=== PATIENT | female | born 1995 | race African-American/Black ===

== ENCOUNTER 2016-11-07 12:13 | Inpatient (IN) | payer MEDICAID, OTHER ==
[~2016-11-07] VITALS: Ht 165.1 cm; Wt 59.0 kg
[2016-11-07] MEDS ORDERED: IV NORMAL SALINE 1000 ML BAG IV ONE (12:45)
--- NOTE | 2016-11-07 12:55 | NUR ---
dr robles at the bedside for eval and exam.
[2016-11-07] MEDS ORDERED: LEVETIRACETAM IV 500 MG in IV DEXTROSE 5% 100 ML IV ONE (13:00)
[2016-11-07 13:05] LABS: BASOPHILS % (AUTO) 0.5 % (0.0-2.0); EOSINOPHILS % (AUTO) 0.9 % (0.0-7.0); HEMATOCRIT 37.3 % (37-47); HEMOGLOBIN 11.8 G/DL (12.0-16.0); LYMPHOCYTES # (AUTO) 2.1 K/UL (0.8-4.8); LYMPHOCYTES % (AUTO) 39.2 % (20.5-51.5); MEAN CORPUSCULAR HGB CONC 32 g/dL (32.0-37.0); MEAN CORPUSCULAR VOLUME 91.6 FL (81.0-99.0); MONOCYTES # (AUTO) 0.5 K/UL (0.1-1.30); MONOCYTES % (AUTO) 9.5 % (0.0-11.0); NEUTROPHILS # (AUTO) 2.6 K/UL (1.8-8.9); NEUTROPHILS % (AUTO) 49.9 % (38.5-71.5); PLATELET COUNT (AUTO) 160 K/UL (150-450); RED BLOOD CELL COUNT(AUTO) 4.08 MIL/UL (4.2-5.4); RED CELL DISTRIBUTION WIDTH 12.7 % (11.5-14.5); WHITE BLOOD COUNT (AUTO) 5.2 K/UL (4.0-11.2)
[2016-11-07] MEDS ORDERED: LEVETIRACETAM 500 MG/5 ML VIAL IV ONE (13:12)
[2016-11-07] MEDS ORDERED: ONDANSETRON 4 MG/2 ML VIAL IV ONE (13:15)
[2016-11-07] MEDS ORDERED: ONDANSETRON 4 MG/2 ML VIAL ONE (13:19)
[2016-11-07 13:25] LABS: ALBUMIN 3.3 g/dL (3.4-5.0); BILIRUBIN,DIRECT 0.1 mg/dL (0.0-0.2); BILIRUBIN,TOTAL 0.3 mg/dL (0.2-1.0); CALCIUM 8.4 mg/dL (8.5-10.1); CREATININE 0.8 mg/dL (0.6-1.3); POTASSIUM 3.8 mmol/L (3.5-5.1)
--- NOTE | 2016-11-07 14:15 | NUR ---
DR CELESTIN ATTEMPTED LP. PT TOLORATED WELL. REMAINES A/O X2.
[2016-11-07 14:28] LABS: *BILIRUBIN,URIN NEGATIVE (NEGATIVE); *BLOOD, URINE NEGATIVE (NEGATIVE); *CLARITY,URINE CLEAR (CLEAR); *COLOR,URINE YELLOW (YELLOW); *KETONES,URINE NEGATIVE (NEGATIVE); *PROTEIN,URINE NEGATIVE (NEGATIVE); *UROBILINOGEN,URINE 0.2 E.U./dl (NORMAL); LEUKOCYTE ESTERASE ,URINE NEGATIVE (NEGATIVE); NITRITE, URINE NEGATIVE (NEGATIVE); UGLUCOSE NEGATIVE (NEGATIVE)
[2016-11-07] MEDS ORDERED: CEFTRIAXONE 2 G in IV DEXTROSE 5% 100 ML IV ONE (14:30)
[2016-11-07 14:41] LABS: BACTERIA,URINE FEW /HPF (NONE SEEN); RBC,URINE 0-3 /HPF (0-3); SQUAMOUS EPITHELIAL CELL,UR MODERATE /HPF (NONE SEEN)
[2016-11-07] MEDS ORDERED: CEFTRIAXONE 1 G VIAL ONE (14:45)
[2016-11-07 14:57] LABS: *AMPHETAMINE, URINE NEGATIVE (NEGATIVE); *BARBITURATE, URINE NEGATIVE (NEGATIVE); *CANNABINOID, URINE NEGATIVE (NEGATIVE); *COCCAINE, URINE NEGATIVE (NEGATIVE); *OPIATE, URINE NEGATIVE (NEGATIVE); *PHENCYCLIDINE SCREEN,URINE NEGATIVE (NEGATIVE)
--- NOTE | 2016-11-07 15:09 | NUR ---
PT LEFT ER FOR XRAY AND WILL GO TO TELE FLOOR FROM THERE. ALL BELONGINGS SENT W/ PT'S BOY FRIEND.
[2016-11-07 16:45] VITALS: BP 126/78
[2016-11-07 17:30] LABS: CSF GLUCOSE 56 mg/dL (40-70); CSF PROTEIN 25 mg/dL (15-45)
[2016-11-07] MEDS ORDERED: Z GUARD REMEDY PASTE 57 GM TUBE TOP PRN (17:30)
[2016-11-07] MEDS ORDERED: CEFTRIAXONE 1 G in IV DEXTROSE 5% 50 ML IV SCH (17:30)
[2016-11-07] MEDS ORDERED: MAGNESIUM HYDROXIDE 30 ML LIQUID UDC PO PRN (17:30)
[2016-11-07] MEDS ORDERED: ONDANSETRON 4 MG/2 ML VIAL IV PRN (17:30)
[2016-11-07] MEDS ORDERED: ZOLPIDEM 5 MG TABLET PO PRN (17:30)
[2016-11-07] MEDS ORDERED: ACETAMINOPHEN 325 MG TABLET PO PRN (17:30)
[2016-11-07 17:37] LABS: CSF APPEARANCE CLEAR (CLEAR); CSF COLOR COLORLESS (COLORLESS); CSF TUBE NUMBER 4; CSF WHITE BLOOD CELL COUNT 1 /cumm (0-5)
--- NOTE | 2016-11-07 17:55 | NUR ---
CLINICAL PHARMACY NOTE: VANCOMYCIN DOSING Request for vancomycin dosing on 20 y/o female 5'5" 130lbs for possible meningitis Temp 98.5, BUN 11 Scr 0.8 WBC 5.2 also receiving ceftriaxone and acyclovir Start vancomycin 1gm ivbp q12h estimate trough 14. Will order trough level prior to 4th dose. Will continue to monitor
[2016-11-07] MEDS: VANCOMYCIN IV 1 G in PREMIXED 0 EACH IV SCH (18:04)
[2016-11-07 19:00] VITALS: BP 112/66
--- NOTE | 2016-11-07 19:30 | NUR ---
Received report from RANDY Melo
[2016-11-07] MEDS ORDERED: diphenhydrAMINE 50 MG/1 ML VIAL IV ONE (20:00)
--- NOTE | 2016-11-07 20:00 | NUR ---
Received patient awake, ambulating to the BR. Denies pain at this time. Complaint of slight itchiness on both arms. No redness noted. Continue to monitor. Awaiting MD order
[2016-11-07] MEDS ORDERED: FAMOTIDINE 20 MG TABLET PO ONE (20:15)
[2016-11-07] MEDS: LEVETIRACETAM IV 500 MG in IV DEXTROSE 5% 100 ML IV SCH (21:14)
--- NOTE | 2016-11-07 22:00 | NUR ---
Visiting hours is over, Security officers asked the patient visitor to leave and patient refused and threatened to go AMA. Explained to both of them that it a hospital policy and patient asking a copy of Hospital policy regarding visiting hours. Charge nurse aware and direct me to call Nursing stewarding supervisor to deal with it. Supervisors were busy in MHU at this time.
[2016-11-07] MEDS: ACYCLOVIR IV 500 MG in IV DEXTROSE 5% 100 ML IV SCH (22:03)
--- NOTE | 2016-11-07 22:30 | NUR ---
Visitor left accompanied by Security Officers. Patient starts crying so loud.
--- NOTE | 2016-11-07 23:05 | NUR ---
Requesting sleeping pills, Ambien given as ordered and needed. Will monitor effect.
[2016-11-08 00:03] VITALS: BP 103/63
[2016-11-08] MEDS: CEFTRIAXONE 2 G in IV DEXTROSE 5% 100 ML IV SCH ×2 (03:39→15:59)
[2016-11-08 04:00] VITALS: BP 99/62
[2016-11-08] MEDS: ACYCLOVIR IV 500 MG in IV DEXTROSE 5% 100 ML IV SCH ×3 (05:58→21:21)
[2016-11-08] MEDS: HYDROCODONE/APAP 5-325MG TABLET PO PRN ×3 (05:58→19:54)
--- NOTE | 2016-11-08 05:58 | NUR ---
Complaining of low back pain. Sagle given as needed and ordered. Will monitor. Patient apologized for her behavior last night.
--- NOTE | 2016-11-08 06:11 | NUR ---
Sleeping during rounds
--- NOTE | 2016-11-08 06:12 | NUR ---
VSS. Medicated once for pain with relief. No further complaint presented. All needs attended and met. No s/s of adverse reaction noted from antibiotics. Vanco reaction is questionable if that's the cause of her itchiness. MD aware with orders. No rashes noted. No further complaint of itchiness after Benadryl was given. Will continue to monitor. No significant event reported. Continue current plan of care.
[2016-11-08] MEDS: VANCOMYCIN IV 1 G in PREMIXED 0 EACH IV SCH ×2 (07:05→17:00)
[2016-11-08 07:14] LABS: BASOPHILS % (AUTO) 0.3 % (0.0-2.0); EOSINOPHILS # (AUTO) 0.1 K/uL (0.0-0.7); EOSINOPHILS % (AUTO) 1.2 % (0.0-7.0); HEMATOCRIT 35.2 % (37-47); HEMOGLOBIN 11.8 G/DL (12.0-16.0); LYMPHOCYTES # (AUTO) 2.3 K/UL (0.8-4.8); LYMPHOCYTES % (AUTO) 41.5 % (20.5-51.5); MEAN CORPUSCULAR HEMOGLOBIN 30.3 UUG (27.0-31.0); MEAN CORPUSCULAR HGB CONC 33 g/dL (32.0-37.0); MEAN CORPUSCULAR VOLUME 90.9 FL (81.0-99.0); MONOCYTES # (AUTO) 0.4 K/UL (0.1-1.30); MONOCYTES % (AUTO) 6.3 % (0.0-11.0); NEUTROPHILS # (AUTO) 2.8 K/UL (1.8-8.9); NEUTROPHILS % (AUTO) 50.7 % (38.5-71.5); PLATELET COUNT (AUTO) 178 K/UL (150-450); RED BLOOD CELL COUNT(AUTO) 3.88 MIL/UL (4.2-5.4); RED CELL DISTRIBUTION WIDTH 12.6 % (11.5-14.5); WHITE BLOOD COUNT (AUTO) 5.6 K/UL (4.0-11.2)
[2016-11-08 07:15] LABS: CALCIUM 8.5 mg/dL (8.5-10.1); CREATININE 0.9 mg/dL (0.6-1.3); MAGNESIUM 1.7 mg/dL (1.8-2.4); PHOSPHOROUS 4.5 mg/dL (2.5-4.9); POTASSIUM 3.9 mmol/L (3.5-5.1)
--- NOTE | 2016-11-08 08:09 | NUR ---
PT AWAKE IN BED, IN NO ACUTE DISTRESS. IV INTACT AND PATENT ALL SAFETY AND COMFORT MEASURES ATTENDED TO, CALL LIGHT IN REACH, WILL CONTINUE TO MONITOR
[2016-11-08] MEDS: LEVETIRACETAM IV 500 MG in IV DEXTROSE 5% 100 ML IV SCH (09:33)
[2016-11-08] MEDS ORDERED: MAGNESIUM OXIDE 400 MG TABLET PO ONE (11:30)
[2016-11-08 12:05] VITALS: BP 101/67
--- NOTE | 2016-11-08 15:31 | NUR ---
Clinical Pharmacy Note: Vancomycin Dosing per Pharmacy Subjective: Vancomycin IV to continue on this 20 yo female patient for r/o meningitis. Objective: BUN 11/Scr 0.9 WBC 5.6 Temperature 98.5 Assessment/Plan: Will change vancomycin dose from 1000mg IVPB Q14hr to 1gm IVPB q11hrs for a predicted vancomycin steady state trough level of 15 mcg/ml (since 1gm q14 will have predicted vancomycin trough level of 14 mcg/ml- low for meningitis). Second dose is due today at 1700. Will draw a vancomycin trough level prior to the 4th dose of vancomycin (ordered for 11/09 at 1430). Will monitor renal function and adjust vancomycin dose, if needed, should renal function change significantly. Will follow daily.
[2016-11-08 16:06] VITALS: BP 99/60
--- NOTE | 2016-11-08 19:54 | NUR ---
PT HAS HX OF SYNCOPE, HERE FOR AMS. SCHEDULED FOR EEG FOR R/O SEIZURES TONIGHT. PT USED CALL LIGHT AND SAID IV WAS BEEPING, DOWEL STICKER OPERATOR ENTERED ROOM AND PT WAS NON RESPONSIVE, RN AND CHARGE NURSE WERE CALLED. RAPID RESPONSE CALLED AT 191 APPLIED STERNAL RUB AND PT STARTED TO MOAN. VS WNL AND SR ON MONITOR. PT WAS ABLE TO OPEN EYES, BUT VERY LETHARGIC. DR RAMIREZ WAS CALLED AND NO ORDERS WERE PLACED AT THAT TIME. PT IS AWAKE IN BED WITH FAMILY AT BEDSIDE, RESPONDS TO QUESTIONS APPROPRIATELY BUT DELAYED ANSWERS. VS REMAIN STABLE AND SR ON MONITOR. NO SIGNS OF RESP DISTRESS.
[2016-11-08 20:00] VITALS: BP 121/79
--- NOTE | 2016-11-08 20:15 | NUR ---
PATIENT NOW ABLE TO VERBALIZE NEEDS. MORE ALERT. ABLE TO ANSWER QUESTIONS. SIGNIFICANT OTHER AT BEDSIDE. SAFETY MAINTAINED. CALL LIGHT WITHIN REACH. WILL MONITOR
[2016-11-08] MEDS: LACTOBACILLUS RHAMNOSUS GG 1 EACH CAPSULE PO SCH (21:21)
--- NOTE | 2016-11-08 22:30 | NUR ---
TELESALES SPECIALIST AT BEDSIDE
[2016-11-09] VITALS: BP 95/54
[2016-11-09] MEDS: HYDROCODONE/APAP 5-325MG TABLET PO PRN (00:09)
[2016-11-09] MEDS: CEFTRIAXONE 2 G in IV DEXTROSE 5% 100 ML IV SCH (02:54)
[2016-11-09] MEDS: VANCOMYCIN IV 1 G in PREMIXED 0 EACH IV SCH (03:57)
[2016-11-09 05:38] VITALS: BP 92/61
[2016-11-09] MEDS: ACYCLOVIR IV 500 MG in IV DEXTROSE 5% 100 ML IV SCH (05:50)
--- NOTE | 2016-11-09 06:10 | NUR ---
SLEPT INTERMITTENTLY DURING THE SHIFT. SIGNIFICANT OTHER AT BEDSIDE. BP WAS 89/59, PLACED IN [place] POSITION. RECHECKED BP 92/61. ALL DUE MEDS GIVEN ORDERED. NEEDS ATTENDED. KEPT COMFORTABLE AT ALL TIMES. CALL LIGHT WITHIN REACH.
[2016-11-09 07:17] LABS: CALCIUM 8.4 mg/dL (8.5-10.1); CREATININE 0.9 mg/dL (0.6-1.3); MAGNESIUM 1.6 mg/dL (1.8-2.4); POTASSIUM 3.6 mmol/L (3.5-5.1)
[2016-11-09] MEDS: LACTOBACILLUS RHAMNOSUS GG 1 EACH CAPSULE PO SCH (10:05)
[2016-11-09 11:45] VITALS: BP 98/54
[2016-11-09] MEDS ORDERED: MAGNESIUM SULFATE/D5W 100 ML IV SCH (11:45)
[2016-11-09] MEDS ORDERED: CITA20TA11 PO (12:27)
--- NOTE | 2016-11-09 14:30 | NUR ---
patient discharged home by Doctor. prescription given. discharged instruction given. stable condition. accompanied by boyfriend.
== END 2016-11-09 14:38 | disposition home or self-care (01) | DRG 755 ==
LOC: ER 12:13 → TELE 15:21
PROVIDERS: ADMIT Family Medicine; ATTEND Family Medicine
PROC: 009U3ZX Drainage of Spinal Canal, Percutaneous Approach, Diagnostic (ICD-10-PCS; principal; 2016-11-07)
PROC: B01BZZZ Fluoroscopy of Spinal Cord (ICD-10-PCS; principal; 2016-11-07)
DX: F45.9 Somatoform disorder, unspecified (principal); E44.1 Mild protein-calorie malnutrition; E88.09 Other disorders of plasma-protein metabolism, not elsewhere classified; E87.1 Hypo-osmolality and hyponatremia; F32.9 Major depressive disorder, single episode, unspecified; F41.9 Anxiety disorder, unspecified; Z68.21 Body mass index [BMI] 21.0-21.9, adult
CPT/HCPCS: 36415; 62270; 70450; 71010; 80307; 83605; 83735; 84100; 84157; 84703; 85025; 85610; 87040; 87086; 87205; 89051; 93005; A4663; J0133; J0696; J1200; J1953; J2405; J3370; J3490; J7030; J7040; J7060

== ENCOUNTER 2018-10-31 13:19 | Emergency (ER) | payer SELFPAY ==
[~2018-10-31] VITALS: Ht 162.6 cm; Wt 54.4 kg
[~2018-10-31 13:19] MED LIST: CITA20TA16 PO
--- NOTE | 2018-10-31 13:45 | NUR ---
ERMD into eval patient
[2018-10-31 14:20] VITALS: BP 105/87
--- NOTE | 2018-10-31 14:20 | NUR ---
Patient discharged to home in stable conditon. Written and verbal after care instructions given. Patient verbalizes understanding of instructions. Walked out of ER with no distress noted
== END 2018-10-31 14:21 | disposition home or self-care (01) ==
LOC: ER 13:19
DX: J06.9 Acute upper respiratory infection, unspecified (principal); J45.909 Unspecified asthma, uncomplicated; Z79.899 Other long term (current) drug therapy
CPT/HCPCS: 71045; A4663